=== PATIENT | male | born 1985 | race Caucasian/White ===

== ENCOUNTER 2016-10-22 15:19 | Emergency (ER) | payer OTHER ==
[2016-10-22 15:32] VITALS: BP 137/88
--- NOTE | 2016-10-22 16:01 | RAD ---
INDICATION: Right thumb injury COMPARISON: None TECHNIQUE: AP, lateral, and oblique views were obtained. FINDINGS: The bony structures, joint spaces, and soft tissues are normal for age. IMPRESSION: NEGATIVE EXAMINATION.
[2016-10-22] MEDS ORDERED: cefTRIAXone VIAL(*) 1,000 MG VIAL IM ONE (16:09)
[2016-10-22] MEDS ORDERED: Lidocaine 1% MPF* 2 ML VIAL ONE (16:13)
--- NOTE | 2016-10-22 16:20 | UC ---
Hand/Wrist HPI - HPI Summary HPI Summary: right thumb pain and swelling worsening over the past 2 days--no fevers, no known injury - History Of Current Complaint Chief Complaint: UCUpperExtremity Stated Complaint: THUMB COMPLAINT Time Seen by Provider: 10/22/16 15:45 Hx Obtained From: Patient ?: No Mechanism Of Injury: n/a Onset/Duration: Sudden Onset, Lasting Days - 2, Still Present, Worse Since - today Severity Initially: Mild Severity Currently: Moderate Character Of Pain: Aching, Throbbing Aggravating Factor(s): Movement Alleviating: Rest Associated Signs And Symptoms: Positive: Swelling, Redness - with lymph streking to wrist from erythemic area at distal joint Related History: Dominant Hand Right - Allergies/Home Medications Allergies/Adverse Reactions: Allergies Allergy/AdvReac Type Severity Reaction Status Date / Time No Known Allergies Allergy Verified 10/22/16 15:25 Home Medications: Home Medications Aspirin EC Low Dose* [Ecotrin EC Low Dose*] 1 tab DAILY 10/22/16 [History Confirmed 10/22/16] buPROPion TAB* [Wellbutrin TAB*] 1 tab DAILY 10/22/16 [History Confirmed ] PMH/Surg Hx/FS Hx/Imm Hx Previously Healthy: No Endocrine History Of: Denies: Diabetes, Thyroid Disease Cardiovascular History Of: Denies: Cardiac Disorders, Hypertension, Congestive Heart Failure Respiratory History Of: Denies: COPD, Asthma GI/ History Of: Denies: Ulcer Neurological History Of: Reports: TIA, CVA - TIA - Surgical History Surgical History: None - Family History Known Family History: Positive: Blood Disorder - Coagulation disorder, Other - HYPERCOAG - Social History 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 Lives: With Family Alcohol Use: Rare Substance Use Type: Marijuana Substance Use Comment - Amount & Last Used: DAILY Smoking Status (MU): Heavy Every Day Tobacco Smoker Type: Cigarettes Amount Used/How Often: 1PPD every other day Length of Time of Smoking/Using Tobacco: 12 years Have You Smoked in the Last Year: Yes Household Exposure Type: Cigarettes Cessation Counseling: Patient Advised to Stop - Immunization History Most Recent Influenza Vaccination: does not get Most Recent Tetanus Shot: utd Review of Systems Constitutional: Negative Skin: Other - area of erythema with streaking to wrist from mid right thumb Eyes: Negative ENT: Negative Respiratory: Negative Cardiovascular: Negative Gastrointestinal: Negative Genitourinary: Negative Motor: Decreased ROM - distal right thumb Neurovascular: Negative Musculoskeletal: Arthralgia - distal right thumb joint Neurological: Negative Psychological: Negative All Other Systems Reviewed And Are Negative: Yes Physical Exam Triage Information Reviewed: Yes Appearance: Well-Appearing, No Pain Distress, Well-Nourished Vital Signs: Initial Vital Signs Temp 98.7 F 10/22/16 15:27 Pulse 63 10/22/16 15:27 Resp 18 10/22/16 15:27 BP 137/88 10/22/16 15:27 Pulse Ox 100 10/22/16 15:27 Eye Exam: Normal Eyes: Positive: Conjunctiva Clear ENT Exam: Normal ENT: Positive: Normal ENT inspection, Hearing grossly normal. Negative: Nasal congestion, Nasal drainage, Trismus, Muffled/hoarse voice Neck exam: Normal Neck: Positive: Supple, Nontender, No Lymphadenopathy Respiratory Exam: Normal Respiratory: Positive: Chest non-tender, Lungs clear, Normal breath sounds, No respiratory distress, No accessory muscle use Cardiovascular Exam: Normal Cardiovascular: Positive: RRR, No Murmur, Pulses Normal, Brisk Capillary Refill Musculoskeletal: Positive: Strength Limited @ - right thumb, ROM Limited @ - rith thumb distal joint, Edema @ - right thumb Neurological Exam: Normal Neurological: Positive: Alert, Muscle Tone Normal Psychological Exam: Normal Skin Exam: Normal Diagnostics - Radiology No standard instances Xray Interpretation: No Acute Changes Radiology Interpretation Completed By: ED Physician, Radiologist Hand/Wrist Course/Dx - Course Course Of Treatment: infection with lymph streaking rith thumb to wrist - Differential Dx/Diagnosis Differential Diagnosis/HQI/PQRI: Cellulitis, Foreign Body, Fracture, Sprain, Strain, Tendonitis, Tenosynovitis Provider Diagnoses: infection right thumb with lymph streaking Discharge - Discharge Plan Condition: Stable Disposition: HOME Prescriptions: Sulfamethox/Trimethoprim DS* [Bactrim DS 800/160 TAB*] 1 tab PO BID #20 tab Patient Education Materials: Wound Infection (ED), Lymphangitis (ED), Heat Pack Application (ED) Forms: *Work Release Referrals: Francisco Coffey MD [Primary Care Provider] - 2 Days Angela Javier MD [Medical Doctor] - 2 Days
== END 2016-10-22 16:30 | disposition home or self-care (01) ==
LOC: UCEAST 15:19
DX: L08.9 Local infection of the skin and subcutaneous tissue, unspecified (principal); F17.210 Nicotine dependence, cigarettes, uncomplicated
CPT/HCPCS: 96372; 99213; G0463; J0696

== ENCOUNTER 2016-10-24 10:33 | Emergency (ER) | payer OTHER ==
[2016-10-24 11:21] VITALS: BP 132/90
--- NOTE | 2016-10-24 12:19 | UC ---
Hand/Wrist HPI - HPI Summary HPI Summary: continued right thumb pain , erythema and swelling - History Of Current Complaint Chief Complaint: UCUpperExtremity Stated Complaint: RT THUMB PAIN Time Seen by Provider: 10/24/16 11:37 Hx Obtained From: Patient ?: No Mechanism Of Injury: no known injury Onset/Duration: Gradual Onset, Lasting Days - 6, Still Present Severity Initially: Mild Severity Currently: Moderate Pain Intensity: 5 Pain Scale Used: 0-10 Numeric Character Of Pain: Aching Aggravating Factor(s): Movement, Lifting Alleviating: Nothing Associated Signs And Symptoms: Positive: Swelling, Redness Related History: Dominant Hand Right - Allergies/Home Medications Allergies/Adverse Reactions: Allergies Allergy/AdvReac Type Severity Reaction Status Date / Time No Known Allergies Allergy Verified 10/24/16 11:21 PMH/Surg Hx/FS Hx/Imm Hx Previously Healthy: No Endocrine History Of: Denies: Diabetes, Thyroid Disease Cardiovascular History Of: Denies: Cardiac Disorders, Hypertension, Congestive Heart Failure Respiratory History Of: Denies: COPD, Asthma GI/ History Of: Denies: Ulcer Neurological History Of: Reports: TIA, CVA - TIA - Surgical History Surgical History: None - Family History Known Family History: Positive: Blood Disorder - Coagulation disorder, Other - HYPERCOAG - Social History Occupation: Employed Full-time Lives: With Family Alcohol Use: Rare Substance Use Type: Marijuana Substance Use Comment - Amount & Last Used: DAILY Smoking Status (MU): Heavy Every Day Tobacco Smoker Type: Cigarettes Amount Used/How Often: 1PPD every other day Length of Time of Smoking/Using Tobacco: 12 years Have You Smoked in the Last Year: Yes Household Exposure Type: Cigarettes Cessation Counseling: Patient Advised to Stop - Immunization History Most Recent Influenza Vaccination: does not get Most Recent Tetanus Shot: utd Review of Systems Constitutional: Negative Skin: Negative Eyes: Negative ENT: Negative Respiratory: Negative Cardiovascular: Negative Gastrointestinal: Negative Genitourinary: Negative Motor: Decreased ROM - rith thumb Neurovascular: Negative Musculoskeletal: Arthralgia - right thumb Neurological: Negative Psychological: Negative All Other Systems Reviewed And Are Negative: Yes Physical Exam Triage Information Reviewed: Yes Appearance: Well-Appearing, No Pain Distress, Well-Nourished Vital Signs: Initial Vital Signs Temp 99.1 F 10/24/16 11:18 Pulse 63 10/24/16 11:18 Resp 16 10/24/16 11:18 BP 132/90 10/24/16 11:18 Pulse Ox 99 10/24/16 11:18 Vital Signs Reviewed: Yes Eye Exam: Normal Eyes: Positive: Conjunctiva Clear ENT Exam: Normal ENT: Positive: Normal ENT inspection, Hearing grossly normal, Pharynx normal, TMs normal. Negative: Nasal congestion, Nasal drainage, Tonsillar swelling, Tonsillar exudate, Trismus, Muffled/hoarse voice Neck exam: Normal Neck: Positive: Supple, Nontender Respiratory Exam: Normal Respiratory: Positive: Chest non-tender, Lungs clear, Normal breath sounds, No respiratory distress, No accessory muscle use Cardiovascular Exam: Normal Cardiovascular: Positive: RRR, No Murmur, Pulses Normal, Brisk Capillary Refill Musculoskeletal Exam: Other Musculoskeletal: Positive: No Edema, Strength Limited @ - right thumb, ROM Limited @ - right thumb Neurological Exam: Normal Neurological: Positive: Alert, Muscle Tone Normal Psychological Exam: Normal Psychological: Positive: Normal Response To Family Skin Exam: Normal Hand/Wrist Course/Dx - Course Course Of Treatment: add Keflex, labs, warm soaks follow with pcp - Differential Dx/Diagnosis Differential Diagnosis/HQI/PQRI: Bursitis, Cellulitis, Gout, Sprain, Strain Provider Diagnoses: right thumb gout - Physician Notifications Discussed Patient Care With: Dr. Cote Time Discussed With Above Provider: 12:00 Discharge - Discharge Plan Condition: Stable Disposition: HOME Prescriptions: Cephalexin CAP* [Keflex CAP*] 500 mg PO QID #28 cap Indomethacin CAP* [Indocin CAP*] 25 mg PO TID PRN #30 cap PRN Reason: pain Patient Education Materials: Wound Infection (ED), Low Purine Diet (ED), Gout ( ED), Heat Pack Application (ED) Referrals: Francisco Coffey MD [Primary Care Provider] - 3 Days
[2016-10-24 16:51] LABS: Hematocrit 49 % (42-52); Hemoglobin 16.5 g/dl (14.0-18.0); Mean Corpuscular HGB Conc 33 g/dl (31-36); Mean Corpuscular Hemoglobin 31 pg (27-31); Mean Corpuscular Volume 93 fL (80-94); Mean Platelet Volume 8 um3 (7.4-10.4); Red Blood Count 5.34 10^6/ul (4.0-5.4); Red Cell Distribution Width 14 % (10.5-15); White Blood Count 12.1 10^3/ul (3.5-10.8)
[2016-10-24 16:54] LABS: C Reactive Protein < 1.00 mg/L (< 5.00); Uric Acid 5.1 mg/dL (4.4-7.6)
[2016-10-24 17:45] LABS: Erythrocyte Sed Rate 3 mm/Hr (0-14)
== END 2016-10-24 12:42 | disposition home or self-care (01) ==
LOC: UCEAST 10:33
DX: M10.9 Gout, unspecified (principal); F17.210 Nicotine dependence, cigarettes, uncomplicated; Z86.73 Personal history of transient ischemic attack (TIA), and cerebral infarction without residual deficits
CPT/HCPCS: 36415; 84550; 85025; 85652; 86140; 99212; G0463

== ENCOUNTER 2016-10-27 14:10 | Emergency (ER) | payer OTHER ==
[2016-10-27 15:38] VITALS: BP 128/89
--- NOTE | 2016-10-27 16:45 | UC ---
General HPI - HPI Summary HPI Summary: SEEN TWICE FOR EVALUATION OF RIGHT THUMB CELLULITIS. SINCE SECOND COURSE OF ANTIBIOTICS SYMPTOMS HAVE RESOLVED. WOULD LIKE WORK NOTE TO RETURN - History of Current Complaint Chief Complaint: Adrianne Stated Complaint: WOUND RECHECK Time Seen by Provider: 10/27/16 16:08 Hx Obtained From: Patient Onset/Duration: Gradual Onset, Lasting Weeks, Resolved Onset Severity: Moderate Current Severity: None Pain Intensity: 0 - Allergy/Home Medications Allergies/Adverse Reactions: Allergies Allergy/AdvReac Type Severity Reaction Status Date / Time No Known Allergies Allergy Verified 10/27/16 15:36 PMH/Surg Hx/FS Hx/Imm Hx Previously Healthy: Yes Endocrine History Of: Denies: Diabetes, Thyroid Disease Cardiovascular History Of: Denies: Cardiac Disorders, Hypertension, Congestive Heart Failure Respiratory History Of: Denies: COPD, Asthma GI/ History Of: Denies: Ulcer Neurological History Of: Reports: TIA, CVA - TIA - Surgical History Surgical History: None - Family History Known Family History: Positive: Blood Disorder - Coagulation disorder, Other - HYPERCOAG - Social History Occupation: Employed Full-time Lives: With Family Alcohol Use: Rare Substance Use Type: Marijuana Substance Use Comment - Amount & Last Used: DAILY Smoking Status (MU): Former Smoker Type: Cigarettes Amount Used/How Often: 1PPD every other day Length of Time of Smoking/Using Tobacco: 12 years Have You Smoked in the Last Year: Yes Household Exposure Type: Cigarettes - Immunization History Most Recent Influenza Vaccination: does not get Most Recent Tetanus Shot: UTD Review of Systems Constitutional: Negative Skin: Negative Eyes: Negative ENT: Negative Respiratory: Negative Cardiovascular: Negative Gastrointestinal: Negative Genitourinary: Negative Motor: Negative Neurovascular: Negative Musculoskeletal: Negative Neurological: Negative Psychological: Negative All Other Systems Reviewed And Are Negative: Yes Physical Exam Triage Information Reviewed: Yes Appearance: Well-Appearing, No Pain Distress, Well-Nourished Vital Signs: Initial Vital Signs Temp 98.7 F 10/27/16 15:33 Pulse 78 10/27/16 15:33 Resp 12 10/27/16 15:33 BP 128/89 10/27/16 15:33 Pulse Ox 99 10/27/16 15:33 Vital Signs Reviewed: Yes Eye Exam: Normal Eyes: Positive: Conjunctiva Clear ENT Exam: Normal ENT: Positive: Normal ENT inspection, Hearing grossly normal, Pharynx normal, TMs normal Dental Exam: Normal Neck exam: Normal Neck: Positive: Supple, Nontender, No Lymphadenopathy Respiratory Exam: Normal Respiratory: Positive: Chest non-tender, Lungs clear, Normal breath sounds, No respiratory distress, No accessory muscle use Cardiovascular Exam: Normal Cardiovascular: Positive: RRR, No Murmur, Pulses Normal Abdominal Exam: Normal Abdomen Description: Positive: Nontender, No Organomegaly Musculoskeletal Exam: Normal Musculoskeletal: Positive: Strength Intact, ROM Intact, No Edema Neurological Exam: Normal Psychological Exam: Normal Psychological: Positive: Normal Response To Family Skin Exam: Normal Course/Dx - Course Course Of Treatment: RETURN TO WORK NOTE WRITTEN - Differential Dx - Multi-Symptom Provider Diagnoses: NORMAL EXAM; MAY RETURN TO WORK Discharge - Discharge Plan Condition: Stable Disposition: HOME Forms: *Gen. Provider Communication Referrals: Francisco Coffey MD [Primary Care Provider] -
== END 2016-10-27 16:32 | disposition home or self-care (01) ==
LOC: UCEAST 14:10
DX: Z09 Encounter for follow-up examination after completed treatment for conditions other than malignant neoplasm (principal); F12.90 Cannabis use, unspecified, uncomplicated; F17.210 Nicotine dependence, cigarettes, uncomplicated
CPT/HCPCS: 99211; G0463

== ENCOUNTER 2017-02-01 10:22 | Emergency (ER) | payer OTHER ==
--- NOTE | 2017-02-01 12:08 | UC ---
Back Pain HPI - HPI Summary HPI Summary: Return of chronic low back pain seem to be on the right side of his lumbar spine more than the left--has not had an opportunity to follow with with pcp - History of Current Complaint Chief Complaint: UCBackPain Stated Complaint: BACK INJURY Time Seen by Provider: 02/01/17 12:05 Hx Obtained From: Patient Onset/Duration: Gradual Onset, Lasting Weeks, Worse Since - past 2 days Timing: Constant Pain Intensity: 6 Pain Scale Used: 0-10 Numeric Back Pain: Is Discrete @ - right side low back Character: Aching, Spasmodic, Stiffness Aggravating: Movement, Lifting, Bending Alleviating: Rest Associated Signs And Symptoms: Positive: Negative Related History: Previous Back Injury - Allergies/Home Medications Allergies/Adverse Reactions: Allergies Allergy/AdvReac Type Severity Reaction Status Date / Time No Known Allergies Allergy Verified 10/27/16 15:36 PMH/Surg Hx/FS Hx/Imm Hx Previously Healthy: No Endocrine History Of: Denies: Diabetes, Thyroid Disease Cardiovascular History Of: Denies: Cardiac Disorders, Hypertension, Congestive Heart Failure Respiratory History Of: Denies: COPD, Asthma GI/ History Of: Denies: Ulcer Neurological History Of: Reports: TIA, CVA - TIA - Surgical History Surgical History: None - Family History Known Family History: Positive: Blood Disorder - Coagulation disorder, Other - HYPERCOAG - Social History Occupation: Employed Full-time Lives: With Family Alcohol Use: Rare Substance Use Type: Marijuana Substance Use Comment - Amount & Last Used: DAILY Smoking Status (MU): Former Smoker Type: Cigarettes Amount Used/How Often: 1PPD every other day Length of Time of Smoking/Using Tobacco: 12 years Have You Smoked in the Last Year: Yes Household Exposure Type: Cigarettes Cessation Counseling: Counseled 3+Min - 10 Min - Immunization History Most Recent Influenza Vaccination: does not get Most Recent Tetanus Shot: UTD Review of Systems Constitutional: Negative Skin: Negative Eyes: Negative ENT: Negative Respiratory: Negative Cardiovascular: Negative Gastrointestinal: Negative Genitourinary: Negative Motor: Negative Neurovascular: Negative Musculoskeletal: Myalgia - right side of low back Neurological: Negative Psychological: Negative All Other Systems Reviewed And Are Negative: Yes Physical Exam Triage Information Reviewed: Yes Appearance: Well-Appearing, No Pain Distress, Well-Nourished Vital Signs Reviewed: Yes Eye Exam: Normal Eyes: Positive: Conjunctiva Clear ENT Exam: Normal ENT: Positive: Normal ENT inspection, Hearing grossly normal, Pharynx normal. Negative: Nasal congestion, Nasal drainage, Tonsillar swelling, Tonsillar exudate, Trismus, Muffled/hoarse voice Dental Exam: Normal Neck exam: Normal Neck: Positive: Supple, Nontender, No Lymphadenopathy Respiratory Exam: Normal Respiratory: Positive: Chest non-tender, Lungs clear, Normal breath sounds, No respiratory distress, No accessory muscle use Cardiovascular Exam: Normal Cardiovascular: Positive: RRR, No Murmur, Pulses Normal, Brisk Capillary Refill Abdominal Exam: Normal Abdomen Description: Positive: Nontender, No Organomegaly, Soft Musculoskeletal Exam: Normal Musculoskeletal: Positive: Strength Intact, ROM Intact, No Edema, Other: - right lower back muscles tender Neurological Exam: Normal Neurological: Positive: Alert Psychological Exam: Normal Skin Exam: Normal Back Pain Course/Dx - Course Course Of Treatment: low back exercise, core strengthening exercixe, nictonine cesation information, nsaid, muscle relaxor follow with pcp - Differential Dx/Diagnosis Differential Diagnosis/HQI/PQRI: Arthritis, Strain, Sprain Provider Diagnoses: Acute on chronic low back pain, nicotine dependant Discharge - Discharge Plan Condition: Stable Disposition: HOME Prescriptions: Ibuprofen TAB* [Motrin TAB* 600 MG] 600 mg PO Q6H PRN #40 tab PRN Reason: back pain, muscle pain Tizanidine HCl (Bulk) [Tizanidine HCl] 2 mg PO TID #40 tab Patient Education Materials: Nicotine (By breathing), How to Stop Smoking (ED) , Sciatica (ED), Lower Back Exercises (ED), Core Strengthening Exercises (ED) Forms: *Work Release Referrals: [facility] [[facility]] - 1 Week Francisco Coffey MD [Primary Care Provider] -
[2017-02-01 12:15] VITALS: BP 118/80
== END 2017-02-01 12:20 | disposition home or self-care (01) ==
LOC: UCEAST 10:22
DX: M54.5 Low back pain (principal); G89.21 Chronic pain due to trauma; F12.90 Cannabis use, unspecified, uncomplicated; F17.210 Nicotine dependence, cigarettes, uncomplicated; Z71.6 Tobacco abuse counseling
CPT/HCPCS: 99212; G0463

== ENCOUNTER 2017-07-17 06:26 | Emergency (ER) | payer OTHER ==
[2017-07-17] MEDS ORDERED: NS 0.9% 1000 ML* 1,000 ML IV ONE (07:44)
[2017-07-17] MEDS ORDERED: Ondansetron INJ* 2 MG/ML VIAL IV ONE ×2 (07:44→09:03)
--- NOTE | 2017-07-17 08:25 | RAD ---
CLINICAL HISTORY: Nausea vomiting, flank pain, COMPARISON: October 28, 2014 TECHNIQUE: Multiple contiguous axial CT scans were obtained of the abdomen and pelvis, without intravenous contrast enhancement. Coronal and sagittal multiplanar reformations are submitted for review. Oral contrast was not administered. FINDINGS: The study is limited by the lack of intravenous contrast. This limits evaluation of the solid organs and vasculature. LUNG BASES: The lung bases are clear. LIVER: The liver is normal in shape, size, contour, and attenuation. BILE DUCTS: There is no intrahepatic or extrahepatic biliary dilatation. GALLBLADDER: The gallbladder is normal, without pericholecystic inflammatory change. PANCREAS: The pancreas is normal, without mass or ductal dilatation. SPLEEN: Normal in size and appearance. UPPER GI TRACT: Evaluation of the gastrointestinal tract is limited by incomplete gastric distention. The upper GI tract is unremarkable. SMALL BOWEL AND MESENTERY: The small bowel is normal in contour, course, and caliber. There is no obstruction or dilatation. COLON: The colon is normal in contour, course, caliber. There is no pericolonic inflammatory change. There is a tubular, vermiform, hollow viscus that is blind ending, and originates from the cecum, consistent with a normal appendix. There is no periappendiceal inflammatory change. This is best seen on axial images 107 through 117 ADRENALS: Normal bilaterally. KIDNEYS: The kidneys are normal in shape, size, contour, and axis. There is no hydronephrosis or nephrolithiasis. BLADDER: The bladder is smooth in contour. PELVIC ORGANS: The prostate gland is normal. The seminal vesicles are symmetric. AORTA: The aorta is normal. IVC: Unremarkable LYMPH NODES: There is no lymphadenopathy by size criteria. ABDOMINAL WALL: There is no evidence for abdominal wall hernia. BONES AND SOFT TISSUES: Unremarkable OTHER: None IMPRESSION: NO HYDRONEPHROSIS OR NEPHROLITHIASIS. NO ACUTE CT PATHOLOGY OF THE VISUALIZED ABDOMEN OR PELVIS
[2017-07-17 08:26] LABS: Hematocrit 46 % (42-52); Hemoglobin 16.7 g/dl (14.0-18.0); Mean Corpuscular HGB Conc 36 g/dl (31-36); Mean Corpuscular Hemoglobin 32 pg (27-31); Mean Corpuscular Volume 88 fL (80-94); Mean Platelet Volume 8 um3 (7.4-10.4); Red Blood Count 5.27 10^6/ul (4.0-5.4); Red Cell Distribution Width 13 % (10.5-15); White Blood Count 10.2 10^3/ul (3.5-10.8)
[2017-07-17 08:27] LABS: Comments Flag Yes
[2017-07-17 08:41] LABS: Albumin 4.5 g/dL (3.2-5.2); BUN/Creatinine Ratio 6.9 (8-20); C Reactive Protein 1.82 mg/L (< 5.00); Calcium 9.8 mg/dL (8.6-10.3); EGFR African American 132.5 (>60); Globulin 2.1 g/dL (2-4); Potassium 3.7 mmol/L (3.5-5.0); Total Bilirubin 0.7 mg/dL (0.2-1.0); Total Protein 6.6 g/dL (6.4-8.9)
[2017-07-17 10:08] LABS: Urine Bacteria Absent (Absent); Urine Bilirubin Negative (Negative); Urine Glucose Negative (Negative); Urine Nitrite Negative (Negative)
[2017-07-17 11:13] VITALS: BP 129/84
--- NOTE | 2017-07-17 12:25 | ED ---
John Chen Nilda, scribed for Adam Salamanca MD on 07/17/17 at 0723 . Abdominal Pain/Male - HPI Summary HPI Summary: This patient is a 31 year old M BIBA to [facility] with a chief complaint of intermittent vomiting since 0200 yesterday morning. The patient rates the pain 8 /10 in severity. Symptoms aggravated and alleviated by nothing. Patient reports abdominal pain (diffuse, aggravated by movement), R-flank pain, and nausea. He denies dysuria and hematuria. Patient denies Hx of Renal Calculi. - History of Current Complaint Chief Complaint: EDGeneral Stated Complaint: VOMITING Time Seen by Provider: 07/17/17 07:17 Hx Obtained From: Patient Onset/Duration: Sudden Onset Timing: Intermittent Severity Currently: Severe Pain Intensity: 8 Pain Scale Used: 0-10 Numeric Location: Diffuse, Flank - R-sided Aggravating Factor(s): Nothing Alleviating Factor(s): Nothing Associated Signs And Symptoms: Positive: Other - abdominal pain (aggravated by movement), R-flank pain, and nausea. He denies abnormal urinary symptoms ( dysuria and hematuria). - Allergies/Home Medications Allergies/Adverse Reactions: Allergies Allergy/AdvReac Type Severity Reaction Status Date / Time No Known Allergies Allergy Verified 07/17/17 06:44 PMH/Surg Hx/FS Hx/Imm Hx Endocrine/Hematology History: Denies: Hx Diabetes, Hx Thyroid Disease Cardiovascular History: Denies: Hx Congestive Heart Failure, Hx Hypertension Respiratory History: Denies: Hx Asthma, Hx Chronic Obstructive Pulmonary Disease (COPD) GI History: Denies: Hx Ulcer History: Denies: Hx Kidney Stones Neurological History: Reports: Hx Transient Ischemic Attacks (TIA) Psychiatric History: Denies: Hx of Violent Episodes Against Others Infectious Disease History: No Infectious Disease History: Denies: Hx Hepatitis, Hx Human Immunodeficiency Virus (HIV), History Other Infectious Disease, Traveled Outside the [place] in Last 30 Days - Family History Known Family History: Positive: Blood Disorder - Coagulation disorder, Other - HYPERCOAG - Social History Alcohol Use: Rare Substance Use Type: Reports: Marijuana Substance Use Comment - Amount & Last Used: DAILY Smoking Status (MU): Former Smoker Type: Cigarettes Amount Used/How Often: 1PPD every other day Length of Time of Smoking/Using Tobacco: 12 years Have You Smoked in the Last Year: Yes Review of Systems Positive: Abdominal Pain, Vomiting, Nausea Positive: flank pain - Right flank pain. Negative: dysuria, hematuria All Other Systems Reviewed And Are Negative: Yes Physical Exam Triage Information Reviewed: Yes Vital Signs On Initial Exam: Initial Vitals Temp Pulse Resp BP Pulse Ox 98.5 F 64 20 136/91 100 07/17/17 06:30 07/17/17 06:30 07/17/17 06:30 07/17/17 06:30 07/17/17 06:30 Vital Signs Reviewed: Yes Appearance: Positive: Well-Appearing, No Pain Distress Skin: Positive: Warm, Skin Color Reflects Adequate Perfusion, Dry Head/Face: Positive: Normal Head/Face Inspection Eyes: Positive: Normal ENT: Positive: Normal ENT inspection Neck: Positive: Supple, Nontender Respiratory/Lung Sounds: Positive: Clear to Auscultation, Breath Sounds Present Cardiovascular: Positive: RRR Abdomen Description: Positive: Nontender, Soft Bowel Sounds: Positive: Present Neurological: Positive: Normal Psychiatric: Positive: Normal, Affect/Mood Appropriate Diagnostics - Vital Signs Vital Signs Temp Pulse Resp BP Pulse Ox 07/17/17 07:01 75 98 07/17/17 06:48 112/72 07/17/17 06:47 58 100 07/17/17 06:30 98.5 F 64 20 136/91 100 - Laboratory Lab Results: Lab Results 07/17/17 07/17/17 07/17/17 Range/Units 08:10 08:10 08:10 WBC 10.2 (3.5-10.8) 10^3/ul RBC 5.27 (4.0-5.4) 10^6/ul Hgb 16.7 (14.0-18.0) g/dl Hct 46 (42-52) % MCV 88 (80-94) fL MCH 32 H (27-31) pg MCHC 36 (31-36) g/dl RDW 13 (10.5-15) % Plt Count 251 (150-450) 10^3/ul MPV 8 (7.4-10.4) um3 Neut % (Auto) 80.2 (38-83) % Lymph % (Auto) 15.0 L (25-47) % [place] % (Auto) 4.2 (1-9) % Eos % (Auto) 0.1 (0-6) % Baso % (Auto) 0.5 (0-2) % Absolute Neuts (auto) 8.2 H (1.5-7.7) 10^3/ul Absolute Lymphs (auto) 1.5 (1.0-4.8) 10^3/ul Absolute Monos (auto) 0.4 (0-0.8) 10^3/ul Absolute Eos (auto) 0 (0-0.6) 10^3/ul Absolute Basos (auto) 0 (0-0.2) 10^3/ul Absolute Nucleated RBC 0.01 10^3/ul Nucleated RBC % 0.1 Sodium 135 (133-145) mmol/L Potassium 3.7 (3.5-5.0) mmol/L Chloride 103 (101-111) mmol/L Carbon Dioxide 25 (22-32) mmol/L Anion Gap 7 (2-11) mmol/L BUN 6 (6-24) mg/dL Creatinine 0.87 (0.67-1.17) mg/dL Est GFR ( Amer) 132.5 (>60) Est GFR (Non-Af Amer) 103.0 (>60) BUN/Creatinine Ratio 6.9 L (8-20) Glucose 115 H (70-100) mg/dL Lactic Acid 1.4 (0.5-2.0) mmol/L Calcium 9.8 (8.6-10.3) mg/dL Total Bilirubin 0.70 (0.2-1.0) mg/dL AST 18 (13-39) U/L ALT 28 (7-52) U/L Alkaline Phosphatase 69 (34-104) U/L C-Reactive Protein 1.82 (< 5.00) mg/L Total Protein 6.6 (6.4-8.9) g/dL Albumin 4.5 (3.2-5.2) g/dL Globulin 2.1 (2-4) g/dL Albumin/Globulin Ratio 2.1 (1-3) Lipase 65 (11.0-82.0) U/L Urine Color Urine Appearance Urine pH (5-9) Ur Specific [place] (1.010-1.030) Urine Protein (Negative) Urine Ketones (Negative) Urine Blood (Negative) Urine Nitrate (Negative) Urine Bilirubin (Negative) Urine Urobilinogen (Negative) Ur Leukocyte Esterase (Negative) Urine WBC (Auto) (Absent) Urine RBC (Auto) (Absent) Urine Bacteria (Absent) Urine Glucose (Negative) 07/17/17 Range/Units 09:53 WBC (3.5-10.8) 10^3/ul RBC (4.0-5.4) 10^6/ul Hgb (14.0-18.0) g/dl Hct (42-52) % MCV (80-94) fL MCH (27-31) pg MCHC (31-36) g/dl RDW (10.5-15) % Plt Count (150-450) 10^3/ul MPV (7.4-10.4) um3 Neut % (Auto) (38-83) % Lymph % (Auto) (25-47) % [place] % (Auto) (1-9) % Eos % (Auto) (0-6) % Baso % (Auto) (0-2) % Absolute Neuts (auto) (1.5-7.7) 10^3/ul Absolute Lymphs (auto) (1.0-4.8) 10^3/ul Absolute Monos (auto) (0-0.8) 10^3/ul Absolute Eos (auto) (0-0.6) 10^3/ul Absolute Basos (auto) (0-0.2) 10^3/ul Absolute Nucleated RBC 10^3/ul Nucleated RBC % Sodium (133-145) mmol/L Potassium (3.5-5.0) mmol/L Chloride (101-111) mmol/L Carbon Dioxide (22-32) mmol/L Anion Gap (2-11) mmol/L BUN (6-24) mg/dL Creatinine (0.67-1.17) mg/dL Est GFR ( Amer) (>60) Est GFR (Non-Af Amer) (>60) BUN/Creatinine Ratio (8-20) Glucose (70-100) mg/dL Lactic Acid (0.5-2.0) mmol/L Calcium (8.6-10.3) mg/dL Total Bilirubin (0.2-1.0) mg/dL AST (13-39) U/L ALT (7-52) U/L Alkaline Phosphatase (34-104) U/L C-Reactive Protein (< 5.00) mg/L Total Protein (6.4-8.9) g/dL Albumin (3.2-5.2) g/dL Globulin (2-4) g/dL Albumin/Globulin Ratio (1-3) Lipase (11.0-82.0) U/L Urine Color [place] Urine Appearance Clear Urine pH 7.0 (5-9) Ur Specific [place] 1.027 (1.010-1.030) Urine Protein 1+(30 mg/dl) H (Negative) Urine Ketones 1+ H (Negative) Urine Blood Negative (Negative) Urine Nitrate Negative (Negative) Urine Bilirubin Negative (Negative) Urine Urobilinogen Negative (Negative) Ur Leukocyte Esterase Trace H (Negative) Urine WBC (Auto) Trace(0-5/hpf) (Absent) Urine RBC (Auto) Trace(0-2/hpf) (Absent) Urine Bacteria Absent (Absent) Urine Glucose Negative (Negative) Result Diagrams: 07/17/17 08:10 07/17/17 08:10 Lab Statement: Any lab studies that have been ordered have been reviewed, and results considered in the medical decision making process. - CT Abd/Pel CT Interpretation Completed By: Radiologist - NO HYDRONEPHROSIS OR NEPHROLITHIASIS. NO ACUTE CT PATHOLOGY OF THE VISUALIZED ABDOMEN OR PELVIS. ED physician has reviewed this radiology report and agrees. - EKG 0656 Cardiac Rate: Bradycardia - 60 bpm EKG Rhythm: Sinus Bradycardia EKG Interpretation: Early repolarization Re-Evaluation - Re-Evaluation First Eval Re-Evaluation Time: 10:55 Comment: Patient feels better. Abdominal Pain Fem Course/Dx - Course Course Of Treatment: Mr. Oconnor presented with intermittent right flank pain that was into the front yesterday but not today. He had a lot of nausea and vomiting. He was treated symptomatically here and improved slowly. His W/U was unrevealing. - Diagnoses Provider Diagnoses: Vomiting Discharge - Discharge Plan Condition: Stable Disposition: HOME Prescriptions: Ondansetron ODT TAB* [Zofran Odt TAB*] 4 mg PO Q6H PRN #20 tab.odt PRN Reason: Nausea/Vomiting Patient Education Materials: Acute Nausea and Vomiting (ED) Referrals: Francisco Coffey MD [Primary Care Provider] - Additional Instructions: RETURN TO THE EMERGENCY DEPARTMENT FOR CHANGING OR WORSENING SYMPTOMS. The documentation as recorded by the John cervantes Nilda accurately reflects the service I personally performed and the decisions made by me, Adam Salamanca MD.
== END 2017-07-17 11:15 | disposition home or self-care (01) ==
LOC: ED 06:26
DX: R11.10 Vomiting, unspecified (principal); R10.9 Unspecified abdominal pain
CPT/HCPCS: 36415; 74176; 80053; 81003; 81015; 83605; 83690; 85025; 86140; 87086; 93005; 96374; 96375; 99283; J2405

== ENCOUNTER 2017-07-21 10:07 | Emergency (ER) | payer OTHER ==
[2017-07-21 10:21] VITALS: BP 132/98
--- NOTE | 2017-07-21 10:45 | UC ---
Abdominal Pain Male HPI - HPI Summary HPI Summary: PT HERE C/O 1 WEEK OF PERSISTENT CONTINUOUS NAUSEA AND VOMITING. WENT TO [facility] 5 DAYS AGO AND HAD UNREMARKABLE W/U INCLUDING BLOOD WORK, URINE AND CT SCAN. WAS D/C'D WITH ZOFRAN BUT SX NOT IMPROVING AT ALL. PT DENIES FEVER, ABDOMINAL PAIN, DIARRHEA. HAS NOT EATEN MUCH OVER THE PAST WEEK AND HAS ONLY HAD 1 SMALL BM. ALSO C/O RIGHT FLANK PAIN. OF NOTE PT IS A CHRONIC DAILY CANNABIS SMOKER. - History of Current Complaint Chief Complaint: UCGeneralIllness Stated Complaint: BACK PAIN VOMITING Time Seen by Provider: 07/21/17 10:28 Hx Obtained From: Patient, Family/Promotions Executive - GIRLFRIEND Onset/Duration: Gradual Onset, Lasting Days, Still Present Timing: Constant Severity Initially: Moderate Severity Currently: Moderate Pain Intensity: 7 Pain Scale Used: 0-10 Numeric Aggravating Factor(s): Nothing Alleviating Factor(s): Nothing Associated Signs And Symptoms: Positive: Back Pain, Decreased Appetite, Nausea, Vomiting. Negative: Fever, Constipation, Blood in Stool, Urinary Symptoms, Diarrhea - Allergies/Home Medications Allergies/Adverse Reactions: Allergies Allergy/AdvReac Type Severity Reaction Status Date / Time No Known Allergies Allergy Verified 07/21/17 10:10 PMH/Surg Hx/FS Hx/Imm Hx Psychological History: Anxiety - Surgical History Surgical History: None - Family History Known Family History: Positive: Blood Disorder - Coagulation disorder, Other - HYPERCOAG - Social History Alcohol Use: Rare Substance Use Type: Marijuana Substance Use Comment - Amount & Last Used: DAILY Smoking Status (MU): Heavy Every Day Tobacco Smoker Type: Cigarettes Amount Used/How Often: 6-7 cig/day Length of Time of Smoking/Using Tobacco: 12 years Have You Smoked in the Last Year: Yes Household Exposure Type: Cigarettes - Immunization History Most Recent Influenza Vaccination: does not get Most Recent Tetanus Shot: UTD Review of Systems Constitutional: Negative ENT: Negative Respiratory: Negative Cardiovascular: Negative Gastrointestinal: Vomiting, Nausea All Other Systems Reviewed And Are Negative: Yes Physical Exam Triage Information Reviewed: Yes Appearance: No Pain Distress, Well-Nourished, Ill-Appearing - MODERATELY ILL APPEARING. ACTIVELY HEAVING REPETITIVELY WHILE IN ROOM Vital Signs: Initial Vital Signs Temp 98.7 F 07/21/17 10:14 Pulse 65 10/13/17 10:14 Resp 18 07/21/17 10:14 BP 132/98 07/21/17 10:14 Pulse Ox 100 07/21/17 10:14 Vital Signs Reviewed: Yes Eyes: Positive: Conjunctiva Clear ENT: Positive: Hearing grossly normal Neck: Positive: Supple Respiratory: Positive: No respiratory distress, No accessory muscle use Cardiovascular Exam: Normal Abdomen Description: Positive: Nontender, Soft. Negative: CVA Tenderness (R), CVA Tenderness (L), Distended, Guarding Musculoskeletal: Positive: No Edema Neurological: Positive: Alert Psychological: Positive: Age Appropriate Behavior Skin: Negative: rashes Abd Pain Male Course/Dx - Course Course Of Treatment: DISCUSSED POSSIBILITY OF HYPEREMESIS CANNABIS. ADVISED CANNABIS CESSATION. PT TO GO TO [facility] ER BY PRIVATE CAR FOR FURTHER EVALUATION GIVEN LONGSTANDING UNRELENTING SX. - Differential Dx/Clinical Impression Provider Diagnoses: ACUTE NAUSEA/VOMITING Discharge - Discharge Plan Condition: Stable Disposition: OTHER Discharge Disposition Comment: TO [facility] ER BY PRIVATE CAR Patient Education Materials: Acute Nausea and Vomiting (ED) Referrals: Francisco Coffey MD [Primary Care Provider] - If Needed Additional Instructions: YOU REQUIRE A HIGHER LEVEL OF CARE THAN WHAT WE CAN PROVIDE HERE. GO DIRECTLY TO THE [facility] ER FROM HERE FOR FURTHER EVALUATION.
== END 2017-07-21 10:55 ==
LOC: UCEAST 10:07
DX: R11.2 Nausea with vomiting, unspecified (principal); F17.210 Nicotine dependence, cigarettes, uncomplicated; F12.10 Cannabis abuse, uncomplicated
CPT/HCPCS: 99212; G0463

== ENCOUNTER 2017-07-21 11:31 | Emergency (ER) | payer OTHER ==
[2017-07-21] MEDS ORDERED: Ondansetron INJ* 2 MG/ML VIAL ONE (12:13)
[2017-07-21] MEDS ORDERED: Ketorolac INJ* 30 MG/ML 1 ML VIAL IV PUSH ONE (12:28)
[2017-07-21] MEDS ORDERED: Metoclopramide IV* 5 MG/ML 2 ML VIAL IV ONE (12:28)
[2017-07-21 12:34] LABS: Hematocrit 53 % (42-52); Mean Corpuscular HGB Conc 34 g/dl (31-36); Mean Corpuscular Hemoglobin 31 pg (27-31); Mean Corpuscular Volume 89 fL (80-94); Mean Platelet Volume 7 um3 (7.4-10.4); Red Cell Distribution Width 14 % (10.5-15); White Blood Count 11.5 10^3/ul (3.5-10.8)
[2017-07-21 12:53] LABS: Urine Bacteria Absent (Absent); Urine Bilirubin Negative (Negative); Urine Glucose Negative (Negative); Urine Nitrite Negative (Negative)
[2017-07-21 12:56] LABS: ALT 31 U/L (7-52); AST 19 U/L (13-39); Alkaline Phosphatase 68 U/L (34-104); Anion Gap 9 mmol/L (2-11); BUN/Creatinine Ratio 8.5 (8-20); Blood Urea Nitrogen 8 mg/dL (6-24); C Reactive Protein < 1.00 mg/L (< 5.00); CO2 Carbon Dioxide 28 mmol/L (22-32); Calcium 10.1 mg/dL (8.6-10.3); Chloride 97 mmol/L (101-111); Creatine Kinase 95 U/L (10-223); EGFR African American 121.2 (>60); EGFR Non-African American 94.2 (>60); Globulin 2.4 g/dL (2-4); Glucose 107 mg/dL (70-100); Lipase 73 U/L (11.0-82.0); Potassium 4.1 mmol/L (3.5-5.0); Sodium 134 mmol/L (133-145); Total Protein 7.4 g/dL (6.4-8.9)
--- NOTE | 2017-07-21 12:59 | RAD ---
INDICATION: Back pain. COMPARISON: There are no prior studies available for comparison. TECHNIQUE: 3 views of the lumbar spine were obtained including lateral, AP and a coned-down lateral view of the lumbar sacral junction. FINDINGS: There is a minimal lumbar scoliosis convex toward the right side. The vertebra are otherwise in normal alignment. No fracture is seen. Disc spaces appear maintained. IMPRESSION: NEGATIVE EXAM.
--- NOTE | 2017-07-21 13:32 | RAD ---
HISTORY: Right upper quadrant and right flank pain COMPARISONS: CT dated July 17, 2017 TECHNIQUE: Multiple transverse and longitudinal ultrasound images were obtained of the right upper quadrant of the abdomen using grayscale and color Doppler imaging. FINDINGS: The study is limited by patient bowel gas. LIVER: The liver is normal in shape, size, contour, and echogenicity. There are no focal parenchymal masses. There is normal hepatopedal flow of the portal vein on Doppler imaging. BILIARY TREE: There is no intrahepatic or extrahepatic biliary dilatation. The common duct measures 0.5 cm. GALLBLADDER: The gallbladder is well-visualized. There is no cholelithiasis, gallbladder wall thickening, pericholecystic fluid, or sonographic Beyer sign. PANCREAS: The pancreas is obscured by overlying bowel gas. RIGHT KIDNEY: The right kidney is normal in shape, size, contour, and echogenicity. There is no hydronephrosis or nephrolithiasis. The right kidney measures 9.8 x 4.8 x 5.5 cm. AORTA AND IVC: The aorta and IVC are unremarkable. FLUID: There are no pleural effusions. There is no free fluid within the hepatorenal recess. OTHER FINDINGS: None. IMPRESSION: LIMITED STUDY. NO ACUTE SONOGRAPHIC PATHOLOGY OF THE VISUALIZED PORTION OF THE ABDOMEN.
[2017-07-21 14:50] VITALS: BP 143/87
--- NOTE | 2017-07-22 18:48 | ED ---
Kate Chen Thomas, scribed for Mat Cotter MD on 07/21/17 at 1251 . Abdominal Pain/Male - HPI Summary HPI Summary: The pt is a 31 y/o M BIBA c/o R flank pain that began six days ago. The pain has worsened throughout the week. The pt rates the pain 8/10. The pain is aggravated by movement and is alleviated by nothing. The patient has treated the pain with Zofran BATTERY PLATE REMOVER. Pt additionally c/o nausea, vomiting, decreased urine output. Pt denies hematuria, dysuria, and fever. He was seen by Dr. Rupesh Salamanca at [facility] five days ago. His workup during that visit was unremarkable and he symptomatically treated before being discharged home. PMHx: chronic back pain. PSHx: none. SHx: current smoker, occasional alcohol use. FHx: he is adopted and FHx is unknown. The patient is accompanied by a female family member. - History of Current Complaint Chief Complaint: EDFlankPain Stated Complaint: FT FLANK PAIN/NAUSEA Time Seen by Provider: 07/21/17 12:14 Hx Obtained From: Patient, Family/Drywall Carrier - female is present Onset/Duration: Lasting Days - onset 6 days ago, Still Present, Worse Since - progressively worsened Timing: Constant Severity Currently: Severe Pain Intensity: 8 Pain Scale Used: 0-10 Numeric Location: Flank - R Aggravating Factor(s): Movement Alleviating Factor(s): Nothing Associated Signs And Symptoms: Positive: Nausea, Vomiting, Other - Decreased urine output. NEGATIVE: hematuria, dysuria, fever.. Negative: Fever - Allergies/Home Medications Allergies/Adverse Reactions: Allergies Allergy/AdvReac Type Severity Reaction Status Date / Time No Known Allergies Allergy Verified 07/21/17 10:10 PMH/Surg Hx/FS Hx/Imm Hx Previously Healthy: No Endocrine/Hematology History: Denies: Hx Diabetes, Hx Thyroid Disease Cardiovascular History: Denies: Hx Congestive Heart Failure, Hx Hypertension Respiratory History: Denies: Hx Asthma, Hx Chronic Obstructive Pulmonary Disease (COPD) GI History: Denies: Hx Ulcer History: Denies: Hx Kidney Stones Musculoskeletal History: Reports: Hx Back Problems Neurological History: Reports: Hx Transient Ischemic Attacks (TIA) Psychiatric History: Denies: Hx of Violent Episodes Against Others Infectious Disease History: No Infectious Disease History: Denies: Hx Hepatitis, Hx Human Immunodeficiency Virus (HIV), History Other Infectious Disease, Traveled Outside the [place] in Last 30 Days - Family History Known Family History: Positive: Other - Patient is adopted so FHx is unknown - Social History Alcohol Use: Occasionally Hx Substance Use: Yes Substance Use Type: Reports: Marijuana Substance Use Comment - Amount & Last Used: DAILY Hx Tobacco Use: Yes Smoking Status (MU): Heavy Every Day Tobacco Smoker Type: Cigarettes Amount Used/How Often: 6-7 cig/day Length of Time of Smoking/Using Tobacco: 12 years Have You Smoked in the Last Year: Yes Review of Systems Negative: Fever Positive: Vomiting, Nausea Positive: flank pain - R, other - Decreased urine output. Negative: dysuria, hematuria All Other Systems Reviewed And Are Negative: Yes Physical Exam - Summary Physical Exam Summary: VITAL SIGNS: Reviewed. GENERAL: Patient is a well-developed and nourished male who is lying comfortable in the stretcher. ~Patient is not in any acute respiratory distress. HEAD AND FACE: Normocephalic and atraumatic. EYES: PERRLA, EOMI x 2, No injected conjunctiva. EARS: Hearing grossly intact. Ear canals and tympanic membranes are WNL. MOUTH: Oropharynx within normal limits. NECK: Supple, trachea is midline, no adenopathy, no JVD. CHEST: Symmetric, no tenderness at palpation LUNGS: Clear to auscultation bilaterally. No wheezing or crackles. CVS: RRR, S1 and S2 present, no murmurs or gallops appreciated. ABDOMEN: RUQ tenderness. He has right flank pain. Soft. No signs of distention. Positive bowel sounds. No rebound no guarding, and no masses palpated. No abdominal bruit or pulsations. EXTREMITIES: FROM in all major joints, no edema, no cyanosis or clubbing. NEURO: Alert and oriented x 3. No acute neurological deficits. Speech is normal. SKIN: Dry and warm Triage Information Reviewed: Yes Vital Signs On Initial Exam: Initial Vitals Temp Pulse Resp BP Pulse Ox 98.2 F 64 20 153/108 99 07/21/17 11:32 07/21/17 11:32 07/21/17 11:32 07/21/17 11:32 07/21/17 11:32 Vital Signs Reviewed: Yes - [place] Coma Scale Coma Scale Total: 15 Diagnostics - Vital Signs Vital Signs Temp Pulse Resp BP Pulse Ox 07/21/17 11:32 98.2 F 64 20 153/108 99 - Laboratory Lab Results: Lab Results 07/21/17 Range/Units 12:20 WBC 11.5 H (3.5-10.8) 10^3/ul RBC 5.90 H (4.0-5.4) 10^6/ul Hgb 18.0 (14.0-18.0) g/dl Hct 53 H (42-52) % MCV 89 (80-94) fL MCH 31 (27-31) pg MCHC 34 (31-36) g/dl RDW 14 (10.5-15) % Plt Count 324 (150-450) 10^3/ul MPV 7 L (7.4-10.4) um3 Neut % (Auto) 69.7 (38-83) % Lymph % (Auto) 21.4 L (25-47) % [place] % (Auto) 7.6 (1-9) % Eos % (Auto) 0.5 (0-6) % Baso % (Auto) 0.8 (0-2) % Absolute Neuts (auto) 8.0 H (1.5-7.7) 10^3/ul Absolute Lymphs (auto) 2.5 (1.0-4.8) 10^3/ul Absolute Monos (auto) 0.9 H (0-0.8) 10^3/ul Absolute Eos (auto) 0.1 (0-0.6) 10^3/ul Absolute Basos (auto) 0.1 (0-0.2) 10^3/ul Absolute Nucleated RBC 0.01 10^3/ul Nucleated RBC % 0.1 Result Diagrams: 07/21/17 12:20 07/21/17 12:20 Lab Statement: Any lab studies that have been ordered have been reviewed, and results considered in the medical decision making process. - Radiology L-Spine XR Xray Interpretation: No Acute Changes - Negative exam. ED physician has reviewed this report and agrees. Radiology Interpretation Completed By: Radiologist - Additional Comments Diagnostic Additional Comments: Gallbladder US. Interpreted by radiologist. Impression: NO ACUTE SONOGRAPHIC PATHOLOGY OF THE VISUALIZED PORTION OF THE ABDOMEN. ED physician has reviewed this report and agrees. Abdominal Pain Fem Course/Dx - Course Assessment/Plan: The pt is a 31 y/o M BIBA c/o R flank pain that began six days ago. The pain has worsened throughout the week. The pt rates the pain 8/10. The pain is aggravated by movement and is alleviated by nothing. The patient has treated the pain with Zofran BATTERY PLATE REMOVER. Pt additionally c/o nausea, vomiting, decreased urine output. Pt denies hematuria, dysuria, and fever. He was seen by Dr. Rupesh Salamanca at [facility] five days ago. His workup during that visit was unremarkable and he symptomatically treated before being discharged home. PMHx: chronic back pain. PSHx: none. SHx: current smoker, occasional alcohol use. FHx : he is adopted and FHx is unknown. The patient is accompanied by a female family member. Test results are without significant abnormality except WBC 11.5 and glucose 105. UA is with 1+ protein and trace ketones, although no blood or infection. US of the gallbladder shows NO ACUTE SONOGRAPHIC PATHOLOGY OF THE VISUALIZED PORTION OF THE ABDOMEN. XR of the L-spine is a negative exam. The patient had a CT Abd/Pel and gallbladder ultrasound obtained four days ago for the same complaint. The CT Abd/Pel showed NO HYDRONEPHROSIS OR NEPHROLITHIASIS. NO ACUTE CT PATHOLOGY OF THE VISUALIZED ABDOMEN OR. PELVIS. The US gallbladder showed LIMITED STUDY. NO ACUTE SONOGRAPHIC PATHOLOGY OF THE VISUALIZED PORTION OF THE ABDOMEN. All these testing showed no abnormalities. Therefore, I believe the patients symptoms are secondary to musculoskeletal pain. Therefore, the patient will be discharged home with follow up by primary care. - Diagnoses Provider Diagnoses: Back pain Discharge - Discharge Plan Condition: Stable Disposition: HOME Prescriptions: Metoclopramide TAB* [Reglan TAB*] 10 mg PO Q6H PRN #10 tab PRN Reason: Pain Naproxen TAB* [Naprosyn 250 mg TAB*] 500 mg PO Q8H PRN #30 tab PRN Reason: Pain Patient Education Materials: Back Pain (ED) Referrals: Francisco Coffey MD [Primary Care Provider] - 3 Days Additional Instructions: Follow up with your primary care provider in 3 days. Return to the emergency department for any new or worsening symptoms. The documentation as recorded by the Kate cervantes Thomas accurately reflects the service I personally performed and the decisions made by , Mat Cotter MD.
== END 2017-07-21 14:49 | disposition home or self-care (01) ==
LOC: ED 11:31
DX: R10.9 Unspecified abdominal pain (principal); M54.9 Dorsalgia, unspecified; R11.2 Nausea with vomiting, unspecified; F17.210 Nicotine dependence, cigarettes, uncomplicated
CPT/HCPCS: 36415; 72100; 76705; 80053; 81003; 81015; 82550; 83690; 83880; 85025; 86140; 96374; 96375; 99283; J1885; J2405; J2765

== ENCOUNTER → 2017-11-08 11:43 | Emergency (ER) | payer SELFPAY ==
[2017-11-08 12:09] VITALS: BP 120/87
== END | disposition home or self-care (01) ==
LOC: UCEAST 11:43
DX: M79.603 Pain in arm, unspecified (principal); Z53.21 Procedure and treatment not carried out due to patient leaving prior to being seen by health care provider

== ENCOUNTER 2017-11-10 09:07 | Emergency (ER) | payer SELFPAY ==
[2017-11-10 09:20] VITALS: BP 114/78
--- NOTE | 2017-11-10 10:12 | UC ---
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 with repetitive movements with right arm - History of Current Complaint Chief Complaint: UCUpperExtremity Stated Complaint: PAINFUL LUMP IN LOWER ARM Time Seen by Provider: 11/10/17 10:11 Hx Obtained From: Patient ?: No Onset/Duration: Sudden Onset, Lasting Days - 4, Still Present Severity Initially: Moderate Severity Currently: Moderate Pain Intensity: 5 Location Of Pain: Is Discrete @ - radial aspect of right fore arm (there is no painful lump) Character: Aching Aggravating Factor(s): Movement Alleviating Factor(s): Nothing Associated Signs And Symptoms: Positive: Negative Related History: Dominant Hand Right - Allergies/Home Medications Allergies/Adverse Reactions: Allergies Allergy/AdvReac Type Severity Reaction Status Date / Time No Known Allergies Allergy Verified 11/10/17 09:20 PMH/Surg Hx/FS Hx/Imm Hx Previously Healthy: Yes - Surgical History Surgical History: Yes Surgery Procedure, Year, and Place: Dental Surgery - Family History Known Family History: Positive: Blood Disorder - Coagulation disorder, Other - Patient is adopted so FHx is unknown - Social History Occupation: Employed Full-time Lives: With Family Alcohol Use: Rare Substance Use Type: Marijuana Substance Use Comment - Amount & Last Used: DAILY Smoking Status (MU): Heavy Every Day Tobacco Smoker Type: Cigarettes Amount Used/How Often: 1.5pack/2days Length of Time of Smoking/Using Tobacco: 12 years Have You Smoked in the Last Year: Yes Household Exposure Type: Cigarettes Cessation Counseling: Counseled 3+Min - 10 Min - Immunization History Most Recent Influenza Vaccination: does not get Most Recent Tetanus Shot: UTD Review of Systems Constitutional: Negative Skin: Negative Eyes: Negative ENT: Negative Respiratory: Negative Cardiovascular: Negative Gastrointestinal: Negative Genitourinary: Negative Motor: Negative Neurovascular: Negative Musculoskeletal: Arthralgia - right fore arm Neurological: Negative Psychological: Negative Is Patient Immunocompromised?: No All Other Systems Reviewed And Are Negative: Yes Physical Exam Triage Information Reviewed: Yes Appearance: Well-Appearing, No Pain Distress, Well-Nourished Vital Signs: Initial Vital Signs Temp 99.1 F 11/10/17 09:15 Pulse 74 11/10/17 09:15 Resp 16 02/02/18 09:15 BP 114/78 11/10/17 09:15 Pulse Ox 99 11/10/17 09:15 Vital Signs Reviewed: Yes Eye Exam: Normal Eyes: Positive: Conjunctiva Clear ENT Exam: Normal ENT: Positive: Normal ENT inspection, Hearing grossly normal. Negative: Nasal drainage, Trismus, Muffled voice, Hoarse voice Dental Exam: Normal Neck exam: Normal Neck: Positive: Supple, Nontender, No Lymphadenopathy Respiratory Exam: Normal Respiratory: Positive: Chest non-tender, No respiratory distress, No accessory muscle use Cardiovascular Exam: Normal Cardiovascular: Positive: RRR, Pulses Normal, Brisk Capillary Refill Musculoskeletal Exam: Normal Musculoskeletal: Positive: Strength Intact, ROM Intact, No Edema Neurological Exam: Normal Neurological: Positive: Alert, Muscle Tone Normal Psychological Exam: Normal Skin Exam: Normal Upper Extremity Course/Dx - Course Course Of Treatment: NSAIDS, mariza wrap, splint, follow with Dr. Crawley, nicotine cesasation - Differential Dx/Diagnosis Provider Diagnoses: Nicotine Dependent, Repative Stress injury right lower arm Discharge - Discharge Plan Condition: Stable Disposition: HOME Prescriptions: Naproxen Sodium [Naproxen Sodium 500 MG TAB] 500 mg PO BID PRN #30 tab PRN Reason: pain Patient Education Materials: How to Stop Smoking (ED), Musculoskeletal Pain (ED ), Tendinitis (ED) Forms: *Work Release Referrals: Salazar Cralwey MD [Medical Doctor] - 5 Days
== END 2017-11-10 10:36 | disposition home or self-care (01) ==
LOC: UCEAST 09:07
DX: S59.911A Unspecified injury of right forearm, initial encounter (principal); X50.3XXA Overexertion from repetitive movements, initial encounter; Y92.9 Unspecified place or not applicable; F17.210 Nicotine dependence, cigarettes, uncomplicated
CPT/HCPCS: 99213; G0463

== ENCOUNTER 2018-06-04 13:13 | Emergency (ER) | payer SELFPAY ==
[2018-06-04 13:38] VITALS: BP 127/88
--- NOTE | 2018-06-04 14:05 | RAD ---
INDICATION: Right foot pain COMPARISON: None TECHNIQUE: AP, lateral, and oblique views were obtained. FINDINGS: The bony structures, joint spaces, and soft tissues are normal for age. IMPRESSION: NEGATIVE EXAMINATION.
--- NOTE | 2018-06-04 14:54 | ED ---
Lower Extremity - HPI Summary HPI Summary: Patient is a 32-year-old male presenting to the ED with a right foot injury which he sustained approximately 1 month ago. He states he dropped the edge of a log onto the dorsal side of his foot has been having pain intermittently since that time. He was told by his pus to come to [facility]. He denies any numbness or tingling, color temperature changes. He remains ambulatory. He denies any other symptoms at this time. Denies any knee pain. - History of Current Complaint Chief Complaint: UCLowerExtremity Stated Complaint: R FOOT/ANKLE INJURY Time Seen by Provider: 06/04/18 13:40 Hx Obtained From: Patient Mechanism Of Injury: Blunt Trauma Onset of Pain: Minutes Onset/Duration: Minutes Severity Initially: Mild Severity Currently: Mild Pain Intensity: 6 Pain Scale Used: 0-10 Numeric Location: Is Discrete @ - right foot pain Associated Signs And Symptoms: Negative: Swelling, Redness, Bruising Aggravating Factor(s): Standing, Ambulation Alleviating Factor(s): Rest Able to Bear Weight: Yes - Risk Factors Gout Risk Factors: Negative DVT Risk Factors: Negative Septic Arthritis Risk Factor: Negative - Allergies/Home Medications Allergies/Adverse Reactions: Allergies Allergy/AdvReac Type Severity Reaction Status Date / Time No Known Allergies Allergy Verified 06/04/18 13:31 Home Medications: Home Medications NK [No Home Medications Reported] 06/04/18 [History Confirmed 06/04/18] PMH/Surg Hx/FS Hx/Imm Hx Previously Healthy: Yes Endocrine/Hematology History: Denies: Hx Diabetes, Hx Thyroid Disease Cardiovascular History: Denies: Hx Congestive Heart Failure, Hx Hypertension Respiratory History: Denies: Hx Asthma, Hx Chronic Obstructive Pulmonary Disease (COPD) GI History: Denies: Hx Ulcer History: Denies: Hx Kidney Stones Musculoskeletal History: Reports: Hx Back Problems Neurological History: Reports: Hx Transient Ischemic Attacks (TIA) Psychiatric History: Denies: Hx of Violent Episodes Against Others - Surgical History Surgery Procedure, Year, and Place: Dental Surgery - Immunization History Hx Pertussis Vaccination: No Immunizations Up to Date: Unable to Obtain/Confirm Infectious Disease History: No Infectious Disease History: Denies: Hx Hepatitis, Hx Human Immunodeficiency Virus (HIV), History Other Infectious Disease, Traveled Outside the [place] in Last 30 Days - Family History Known Family History: Positive: Blood Disorder - Coagulation disorder, Other - Patient is adopted so FHx is unknown - Social History Occupation: Employed Full-time Lives: With Family Alcohol Use: Rare Hx Substance Use: Yes Substance Use Type: Reports: Marijuana Substance Use Comment - Amount & Last Used: DAILY Hx Tobacco Use: Yes Smoking Status (MU): Heavy Every Day Tobacco Smoker Type: Cigarettes Amount Used/How Often: 1.5pack/ day Length of Time of Smoking/Using Tobacco: 12 years Have You Smoked in the Last Year: Yes Review of Systems Constitutional: Negative Negative: Fever, Chills, Fatigue, Skin Diaphoresis Negative: Palpitations, Chest Pain Negative: Shortness Of Breath, Cough Genitourinary: Negative Positive: no symptoms reported, see HPI Positive: Arthralgia - right foot pain Skin: Negative Psychological: Normal All Other Systems Reviewed And Are Negative: Yes Physical Exam Triage Information Reviewed: Yes Vital Signs On Initial Exam: Initial Vitals Temp Pulse Resp BP Pulse Ox 98.1 F 79 16 127/88 99 06/04/18 13:32 06/04/18 13:32 06/04/18 13:32 06/04/18 13:32 06/04/18 13:32 Vital Signs Reviewed: Yes Appearance: Positive: Well-Appearing, Well-Nourished Skin: Positive: Skin Color Reflects Adequate Perfusion Neck: Positive: Supple, No Lymphadenopathy Respiratory/Lung Sounds: Positive: Clear to Auscultation, Breath Sounds Present Cardiovascular: Positive: RRR, Pulses are Symmetrical in both Upper and Lower Extremities Musculoskeletal: Positive: Strength/ROM Intact Neurological: Positive: Speech Normal Psychiatric: Positive: Normal Diagnostics - Vital Signs Vital Signs Temp Pulse Resp BP Pulse Ox 06/04/18 13:32 98.1 F 79 16 127/88 99 - Laboratory Lab Statement: Any lab studies that have been ordered have been reviewed, and results considered in the medical decision making process. - Radiology No standard instances Xray Interpretation: No Acute Changes - no acute findings Radiology Interpretation Completed By: Radiologist Lower Extremity Course/Dx - Course Course Of Treatment: Patient is evaluated for right foot pain. X-ray of the right foot obtained which shows no acute findings. He is encouraged ice and ibuprofen and he is okay to return to work at this time. - Diagnoses Provider Diagnoses: Contusion, foot Discharge - Sign-Out/Discharge Documenting (check all that apply): Patient Departure All imaging exams completed and their final reports reviewed: Yes - Discharge Plan Condition: Stable Disposition: HOME Patient Education Materials: Crush Injury (ED) Forms: *Gen. Provider Communication Referrals: No Primary Care Phys,NOPCP [Primary Care Provider] - Additional Instructions: No evidence of fracture is seen ibuprofen 600mg three times daily as needed for discomfort - Billing Disposition and Condition Condition: STABLE Disposition: Home
== END 2018-06-04 14:15 | disposition home or self-care (01) ==
LOC: UCEAST 13:13
DX: S90.31XA Contusion of right foot, initial encounter (principal); F17.210 Nicotine dependence, cigarettes, uncomplicated; W20.8XXA Other cause of strike by thrown, projected or falling object, initial encounter; Y92.9 Unspecified place or not applicable
CPT/HCPCS: 99211; G0463

== ENCOUNTER 2018-06-15 11:51 | Emergency (ER) | payer SELFPAY ==
[2018-06-15 12:23] VITALS: BP 113/72
--- NOTE | 2018-06-15 14:01 | UC ---
Lower Extremity/Ankle HPI - HPI Summary HPI Summary: The patient is a 32-year-old male who presents here for the evaluation of a right foot injury that occurred greater than 6 weeks ago. Work-related injury. 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 He has walked with a pronounced limp since then. He has had significant pain with weightbearing daily since the injury. He was seen here about a week and a half ago and had an x-ray of his foot which was read as negative. - History of Current Complaint Chief Complaint: UCLowerExtremity Stated Complaint: WC FOLLOW UP R FOOT Time Seen by Provider: 06/15/18 13:44 Hx Obtained From: Patient Onset/Duration: Sudden Onset, Lasting Weeks, Still Present Severity Initially: Moderate Severity Currently: Moderate Pain Intensity: 7 Pain Scale Used: 0-10 Numeric Aggravating Factor(s): Standing, Ambulation Alleviating Factor(s): Rest, Elevation Able to Bear Weight: Yes Related History: Occupational Injury Feet (Multiple View): 1 - tender mid foot 2 - brunt of trauma here 3 - also tender metarsal heads - Allergies/Home Medications Allergies/Adverse Reactions: Allergies Allergy/AdvReac Type Severity Reaction Status Date / Time No Known Allergies Allergy Verified 06/15/18 12:23 PMH/Surg Hx/FS Hx/Imm Hx Previously Healthy: Yes - Surgical History Surgical History: None Surgery Procedure, Year, and Place: Dental Surgery - Family History Known Family History: Positive: Unknown - He is adopted, little known about his FHx, Blood Disorder - Coagulation disorder, Other - Patient is adopted so FHx is unknown - Social History Alcohol Use: Rare Substance Use Type: Marijuana Substance Use Comment - Amount & Last Used: DAILY Smoking Status (MU): Heavy Every Day Tobacco Smoker Type: Cigarettes Amount Used/How Often: 1.5pack/ day Length of Time of Smoking/Using Tobacco: 12 years Have You Smoked in the Last Year: Yes Household Exposure Type: Cigarettes - Immunization History Most Recent Influenza Vaccination: does not get Most Recent Tetanus Shot: UTD Review of Systems Constitutional: Negative Skin: Negative Eyes: Negative ENT: Negative Respiratory: Negative Cardiovascular: Negative Gastrointestinal: Negative Genitourinary: Negative Motor: Negative Neurovascular: Negative Musculoskeletal: Arthralgia Neurological: Negative Psychological: Negative Is Patient Immunocompromised?: No All Other Systems Reviewed And Are Negative: Yes Physical Exam Triage Information Reviewed: Yes Appearance: Well-Appearing, No Pain Distress, Well-Nourished Vital Signs: Initial Vital Signs Temp 97.8 F 06/15/18 12:18 Pulse 53 06/15/18 12:18 Resp 19 06/15/18 12:18 BP 113/72 06/15/18 12:18 Pulse Ox 100 06/15/18 12:18 Vital Signs Reviewed: Yes Eyes: Positive: Conjunctiva Clear ENT: Positive: Hearing grossly normal. Negative: Nasal congestion, Nasal drainage, Trismus, Muffled voice, Hoarse voice Neck: Positive: Supple, Nontender Respiratory: Positive: Lungs clear, Normal breath sounds, No respiratory distress, No accessory muscle use Cardiovascular: Positive: RRR, No Murmur Musculoskeletal: Positive: No Edema, Other: - see image Neurological: Positive: Alert Psychological Exam: Normal Skin Exam: Normal Diagnostics - Radiology No standard instances Xray Interpretation: Positive (See Comments) - anterior lateral process of the calcaneus healing chip fx Lower Extremity Course/Dx - Differential Dx/Diagnosis Provider Diagnoses: subacute chip fx calcaneus ant-lateral process Discharge - Sign-Out/Discharge Documenting (check all that apply): Patient Departure All imaging exams completed and their final reports reviewed: Yes - Discharge Plan Condition: Stable Disposition: HOME Patient Education Materials: Calcaneal Fracture (ED) Forms: *Work Release Referrals: Wilfred Vences MD [Medical Doctor] - As Soon As Possible Additional Instructions: chip fracture of calcaneus CAM boot advil or aleve ice twice daily - Billing Disposition and Condition Condition: STABLE Disposition: Home
--- NOTE | 2018-06-15 14:39 | RAD ---
Indication: Persistent RIGHT foot pain following injury greater than 6 weeks ago. Comparison: June 04, 2018 radiographs. Technique: Noncontrast CT RIGHT ankle and foot. Multiplanar reformation. Report: Normal articular alignment. Small grossly nondisplaced fracture at the superior lateral margin of the anterior process of the calcaneus corresponding with the origin of the bifurcate ligament. Suggestion of mild osseous remodeling favoring early fracture healing response. Overlying soft tissue swelling. Negative for additional fracture. Negative for significant arthropathic change. IMPRESSION: #. Small grossly nondisplaced fracture at the superior lateral margin of the anterior process of the calcaneus corresponding with the origin of the bifurcate ligament. Suggestion of mild osseous remodeling favoring early fracture healing response. Overlying soft tissue swelling.
== END 2018-06-15 15:05 | disposition home or self-care (01) ==
LOC: UCEAST 11:51
DX: S92.021A Displaced fracture of anterior process of right calcaneus, initial encounter for closed fracture (principal); W20.8XXA Other cause of strike by thrown, projected or falling object, initial encounter; Y92.9 Unspecified place or not applicable
CPT/HCPCS: 99212; G0463

== ENCOUNTER 2018-08-09 09:31 | Day surgery (SDC) | payer OTHER ==
[~2018-08-09 09:31] MED LIST: Buffered Lidocaine 0.9% SYRIN* 5 ML/SYR SYRINGE INTRADERM ONE; Dexamethasone TAB* 4 MG PO ONE; Famotidine IV* 10 MG/ML 2 ML (20 mg) IV ONE; Morphine VIAL* 10 MG/ML 1 ML VIAL ONE; Ondansetron TAB* 4 MG PO ONE
[2018-08-09] MEDS ORDERED: ceFAZolin 2 GM PREMIX in ORs 2 GM/50 ML BAG IVPB ONE (09:38)
[2018-08-09] MEDS ORDERED: Morphine VIAL* 10 MG/ML 1 ML VIAL ONE (09:38)
[2018-08-09] MEDS ORDERED: Midazolam* 1 MG/ML 5 ML VIAL (5 MG) ONE (10:45)
[2018-08-09] MEDS ORDERED: fentaNYL* 50 MCG/ML 2 ML VIAL (100 MCG VIAL) ONE (10:45)
[2018-08-09] MEDS ORDERED: Propofol* 10 MG/ML 20 ML BTL IV PUSH ONE (10:46)
[2018-08-09] MEDS ORDERED: Bupivacaine 0.5% SDV PF* 30ML VIAL ONE (10:49)
[2018-08-09] MEDS ORDERED: oxyCODONE/Acetamin 5/325 MG* TAB PO PRN (11:24)
[2018-08-09] MEDS ORDERED: Ondansetron INJ* 2 MG/ML VIAL IV PRN (11:24)
[2018-08-09] MEDS ORDERED: Ketorolac INJ* 30 MG/ML 1 ML VIAL ONE (11:24)
[2018-08-09] MEDS ORDERED: Ketorolac INJ* 30 MG/ML 1 ML VIAL IV PRN (11:24)
[2018-08-09] MEDS ORDERED: Naloxone* 0.4 MG/ML 1 ML VIAL IV PRN (11:24)
[2018-08-09 12:17] VITALS: BP 124/88
--- NOTE | 2018-08-09 13:18 | OP ---
Operative Report - Blank - Operative Report Date of Operation: 08/09/18 Note: PATIENT: Anthony Oconnor DATE OF : 1985 DATE OF SURGERY: 08/09/2018 SURGEON: Silvano Lancaster MD WATER CONTROL SUPERVISOR: WERNER Granger, whos assistance was necessary for positioning, retraction, help with instrumentation, and closure. ANESTHESIOLOGIST: Dr. 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 ANESTHESIA: LMA IMPLANTS: none TOURNIQUET TIME: Less than one hour with a well-padded thigh tourniquet at 250mmHg SPECIMENS: none ESTIMATED BLOOD LOSS: minimal COMPLICATIONS: none STATUS: Stable from the operating room to the recovery room and then home INDICATIONS FOR PROCEDURE: Anthony has had persistent pain at the site of his anterior process of the calcaneus nonunion. Both operative and non-operative treatment alternatives were reviewed. Further, the nature and risks of surgery were reviewed in careful detail. Our discussions regarding the risks of surgery included, but were not limited to, infection, wound problems, nerve injury, neuroma, RSD, persistent pain/symptoms, blood clot, need for further surgery, failure of the surgery, and even the remote chance of catastrophic complication, including loss of limb. DESCRIPTION OF PROCEDURE: The patient was seen in the preoperative holding unit and informed written consent was obtained. The appropriate extremity was marked. The patient was then brought to the operating room and carefully positioned on the operating room table. Anesthesia was induced. All bony prominences were padded with great care. A well-padded thigh tourniquet was placed. A chlorhexidine based pre- scrub was performed followed by a chloraprep prep and drape in standard sterile fashion. A surgical safety pause was then conducted in which we confirmed the appropriate patient, extremity, planned procedure, availability of equipment, indication and administration of prophylactic antibiotics, and DVT prophylaxis in the form of a compression boot on the non-surgical extremity. I began with an Esmarch exsanguination of the limb and inflated the tourniquet. I made a longitudinal incision overlying the lateral hindfoot, centered at the anterior process of the calcaneus. I used careful blunt dissection down to the level of the extensor digitorum brevis. The fibers of the extensor digitorum brevis were then split longitudinally to expose the underlying anterior process of the calcaneus. I used my 15 blade scalpel to define the anterior process nonunion fracture plane. Soft tissue attachments were then released, allowing me to excise the nonunited anterior process, thus performing a saucerization. I used a rongeur to smooth out the edges of the remaining bone. The wound was copiously irrigated and meticulously closed in layers utilizing 3- 0 Monocryl and 3-0 Nylon for the skin. A sterile dressing was then applied. The patient was then awakened from anesthesia and transferred to the recovery room in stable condition. There were no complications. All needle and sponge counts were correct at the end of the case. ATTESTATION: I attest I was present and scrubbed and performed the critical portions of the procedure myself. POSTOPERATIVE PLAN: The plan is for nonweightbearing and follow up in 2 weeks for likely suture removal.
== END 2018-08-09 12:44 | disposition home or self-care (01) ==
LOC: OR 09:31
PROVIDERS: ATTEND Orthopaedic Surgery
DX: S92.024K Nondisplaced fracture of anterior process of right calcaneus, subsequent encounter for fracture with nonunion (principal); Z72.0 Tobacco use; X58.XXXD Exposure to other specified factors, subsequent encounter; Y92.9 Unspecified place or not applicable
CPT/HCPCS: J0690; J1885; J2250; J2270; J2704; J3010

== ENCOUNTER 2019-10-26 14:40 | Emergency (ER) | payer OTHER ==
[2019-10-26 15:00] VITALS: BP 158/95
--- NOTE | 2019-10-26 15:05 | UC ---
Bite Injury/Animal HPI - HPI Summary HPI Summary: patient was bitten by his pet dog while pulling treat out of her mouth today. bite wounds on both hands Tdap 2 years ago - History of Current Complaint Chief Complaint: UCBiteInjury Stated Complaint: DOG BITE-HAND Time Seen by Provider: 10/26/19 14:50 Severity Currently: None Severity Initially: Moderate Pain Intensity: 0 Onset/Duration: Sudden Onset Type of Bite: Pet - dog Has Animal Been Immunized?: Yes Character: Puncture - abrasions Aggravating Factor(s): Nothing Alleviating Factor(s): Nothing Associated Signs And Symptoms: Positive: Negative Hx of Bite: Provoked by: - taking food out of mouth Animal Available for Observation: Yes Animal Control Notified: Yes - Allergies/Home Medications Allergies/Adverse Reactions: Allergies Allergy/AdvReac Type Severity Reaction Status Date / Time No Known Allergies Allergy Verified 10/26/19 15:01 PMH/Surg Hx/FS Hx/Imm Hx Previously Healthy: Yes - Surgical History Surgical History: Yes Surgery Procedure, Year, and Place: Dental Surgery-teeth removed. MOLE REMOVED FROM BACK AGE 15. Rt FOOT - FRACTURE HEEL REPAIR - NO HARDWARE - Family History Known Family History: Positive: Unknown - He is adopted, little known about his FHx, Blood Disorder - Coagulation disorder, Other - Patient is adopted so FHx is unknown - Social History Occupation: Employed Full-time Lives: With Family Alcohol Use: Rare Substance Use Type: Marijuana Substance Use Comment - Amount & Last Used: medical Smoking Status (MU): Light Every Day Tobacco Smoker Type: Cigarettes Amount Used/How Often: 0.5 PPD X smoked for 15-20 years Length of Time of Smoking/Using Tobacco: 12 years Have You Smoked in the Last Year: Yes Household Exposure Type: Cigarettes Cessation Counseling: Patient Advised to Stop - Immunization History Most Recent Influenza Vaccination: does not get Most Recent Tetanus Shot: UTD Review of Systems All Other Systems Reviewed And Are Negative: Yes Constitutional: Positive: Negative Skin: Positive: Other - dog bite wounds R fingers Respiratory: Positive: Negative Cardiovascular: Positive: Negative Musculoskeletal: Positive: Negative Neurological: Positive: Negative Psychological: Positive: Negative Is Patient Immunocompromised?: No Physical Exam Triage Information Reviewed: Yes Appearance: Well-Appearing, No Pain Distress, Well-Nourished Vital Signs: Initial Vital Signs Temp 98.2 F 10/26/19 14:55 Pulse 96 10/26/19 14:55 Resp 20 10/26/19 14:55 BP 158/95 10/26/19 14:55 Pulse Ox 99 10/26/19 14:55 Vital Signs Reviewed: Yes Respiratory Exam: Normal Respiratory: Positive: Lungs clear Cardiovascular Exam: Normal Cardiovascular: Positive: RRR Musculoskeletal Exam: Normal Musculoskeletal: Positive: Strength Intact, ROM Intact Neurological Exam: Normal Neurological: Positive: Other: - sensation intact R hand/fingers Psychological Exam: Normal Skin Exam: Other - dog bite R 1st, 3rd, 4th fingers, superficial PW and abrasions, demonstrates full ROM and strength all fingers Bite Injury Course/Dx - Differential Dx/Diagnosis Differential Diagnosis/HQI/PQRI: Crush Injury, Laceration, Puncture, Rabies Exposure Provider Diagnosis: Dog bite Discharge ED - Sign-Out/Discharge Documenting (check all that apply): Patient Departure All imaging exams completed and their final reports reviewed: No Studies - Discharge Plan Condition: Good Disposition: HOME Prescriptions: Amoxicillin/Clavulanate TAB* [Augmentin TAB 875*] 875 mg PO BID #20 tab Patient Education Materials: Animal Bite (ED) Referrals: Salazar Cheng MD [Primary Care Provider] - Additional Instructions: keep wounds clean and dry elevate hand and apply cold packs for next 2 days start antibiotic and take as directed use ibuprofen or Tylenol as directed for pain return if you experience swelling, redness or drainage from wounds - Billing Disposition and Condition Condition: GOOD Disposition: Home
== END 2019-10-26 15:30 | disposition home or self-care (01) ==
LOC: UCEAST 14:40
DX: S61.051A Open bite of right thumb without damage to nail, initial encounter (principal); S61.252A Open bite of right middle finger without damage to nail, initial encounter; S61.254A Open bite of right ring finger without damage to nail, initial encounter; F17.210 Nicotine dependence, cigarettes, uncomplicated; W54.0XXA Bitten by dog, initial encounter; Y92.9 Unspecified place or not applicable
CPT/HCPCS: 99213; G0463

== ENCOUNTER 2019-10-26 21:26 | Emergency (ER) | payer OTHER ==
--- NOTE | 2019-10-26 21:41 | ED ---
Bite Injury/Animal - HPI Summary HPI Summary: 33-year-old male without significant past history presents to the emergency department today with multiple dog bites after he broke up a fight between 2 of his dogs. Patient has noted bite wounds to the right knee, right forearm, left wrist. Patient states the dogs were fighting her both his and her up-to-date with her rabies vaccinations. Patient states he is up-to-date with his tetanus vaccination. Patient is in considerable pain and there is noted deformity to the right forearm. There are multiple puncture wounds throughout the areas where the patient endorses being bitten. Patient otherwise feels well and denies fever, chest pain, abdominal pain, pain with urination, rash. Pt seen earlier this day for a different dog bite and given augmentin. - History of Current Complaint Chief Complaint: EDAnimalBite Stated Complaint: DOG BITE PER EMS Time Seen by Provider: 10/26/19 21:40 Hx Obtained From: Patient Onset of Injury: Happened hours ago Type of Bite: Animal Hx of Bite: Provoked by: - dogs fighting Has Animal Been Immunized?: Yes Severity Initially: Severe Severity Currently: Severe Pain Intensity: 9 Pain Scale Used: 0-10 Numeric Character: Puncture Aggravating Factor(s): Exertion Alleviating Factor(s): Rest Animal Available for Observation: Yes Animal Control Notified: Yes - Allergies/Home Medications Allergies/Adverse Reactions: Allergies Allergy/AdvReac Type Severity Reaction Status Date / Time No Known Allergies Allergy Verified 10/26/19 15:01 PMH/Surg Hx/FS Hx/Imm Hx Endocrine/Hematology History: Denies: Hx Diabetes, Hx Thyroid Disease Cardiovascular History: Reports: Other Cardiovascular Problems/Disorders - OCCASIONAL-"HEART RATE RAPID AT TIMES"-LASTING 10 SECONDS-REPORTS NOT NEW Denies: Hx Congestive Heart Failure, Hx Hypertension, Hx Pacemaker/ICD Respiratory History: Reports: Hx Asthma - EXERCISE INDUCED ASTHMA AT AGE 14- STATES NO PROBLEMS NOW Denies: Hx Chronic Obstructive Pulmonary Disease (COPD) GI History: Denies: Hx Ulcer History: Denies: Hx Kidney Stones, Hx Renal Disease Musculoskeletal History: Reports: Hx Back Problems Sensory History: Reports: Hx Contacts or Glasses - glasses Denies: Hx Hearing Aid Opthamlomology History: Reports: Hx Contacts or Glasses - glasses Neurological History: Reports: Hx Headaches - HX OF AND ON OCCASION, Hx Migraine - HX OF- AND ON OCCASION, Hx Transient Ischemic Attacks (TIA) Psychiatric History: Reports: Hx Anxiety - REPORTS STRESS RELATED Denies: Hx Panic Disorder, Hx of Violent Episodes Against Others - Cancer History Hx Chemotherapy: No - Surgical History Surgery Procedure, Year, and Place: Dental Surgery-teeth removed. MOLE REMOVED FROM BACK AGE 15. Rt FOOT - FRACTURE HEEL REPAIR - NO HARDWARE Hx Anesthesia Reactions: No Infectious Disease History: No Infectious Disease History: Denies: Hx Hepatitis, Hx Human Immunodeficiency Virus (HIV), History Other Infectious Disease, Traveled Outside the [place] in Last 30 Days - Family History Known Family History: Positive: Unknown - He is adopted, little known about his FHx, Blood Disorder - Coagulation disorder, Other - Patient is adopted so FHx is unknown - Social History Alcohol Use: Rare Hx Substance Use: Yes Substance Use Type: Reports: Marijuana Substance Use Comment - Amount & Last Used: medical Hx Tobacco Use: Yes Smoking Status (MU): Light Every Day Tobacco Smoker Type: Cigarettes Amount Used/How Often: 0.5 PPD X smoked for 15-20 years Length of Time of Smoking/Using Tobacco: 12 years Have You Smoked in the Last Year: Yes Review of Systems Constitutional: Negative Eyes: Negative ENT: Negative Cardiovascular: Negative Respiratory: Negative Gastrointestinal: Negative Genitourinary: Negative Positive: Arthralgia, Myalgia, Decreased ROM, Edema Positive: Bruising Neurological: Negative Psychological: Normal All Other Systems Reviewed And Are Negative: Yes Physical Exam - Summary Physical Exam Summary: Multiple puncture wounds noted to right knee, right forearm and left wrist. There is edema and ecchymosis noted to the right forearm. Pt has full ROM throughout and is neurovascularly intact. Triage Information Reviewed: Yes Vital Signs On Initial Exam: Initial Vitals Temp Pulse Resp BP Pulse Ox 98.6 F 91 16 118/81 97 10/26/19 21:29 10/26/19 21:29 10/26/19 21:29 10/26/19 21:29 10/26/19 21:29 Vital Signs Reviewed: Yes Appearance: Positive: Well-Appearing, No Pain Distress, Well-Nourished Skin: Positive: Warm, Skin Color Reflects Adequate Perfusion Eyes: Positive: EOMI, BURKE ENT: Positive: Hearing grossly normal Respiratory/Lung Sounds: Positive: Clear to Auscultation, Breath Sounds Present Cardiovascular: Positive: RRR, S1, S2 Abdomen Description: Positive: Nontender, Soft Bowel Sounds: Positive: Present Musculoskeletal: Positive: Strength/ROM Intact Neurological: Positive: Sensory/Motor Intact, Alert, Oriented to Person Place, Time, Normal Gait, Speech Normal Psychiatric: Positive: Normal, Affect/Mood Appropriate AVPU Assessment: Alert Procedures - Sedation Patient Received Moderate/Deep Sedation with Procedure: No Diagnostics - Vital Signs Vital Signs Temp Pulse Resp BP Pulse Ox 10/26/19 21:29 98.6 F 91 16 118/81 97 - Laboratory Lab Statement: Any lab studies that have been ordered have been reviewed, and results considered in the medical decision making process. Bite Injury Course/Dx - Course Course Of Treatment: Pt evaluated for animal bite. Vitals noted. PT was seen at urgent care for a different dog bite earlier in the day and given augmentin. xray ofthe right forearm negative for fracture or foreign body. Pt is UTD with tetanus immunization. PT wounds cleaned and dressed. Sutures were not applied due to infection risk, and left for secondary closure. Animal control called, and patient discharged with augmentin and outpatient follow up. - Diagnoses Differential Diagnosis/HQI/PQRI: Positive: Compartment Syndrome, Crush Injury, Fracture, Laceration, Puncture, Rabies Exposure, Superficial Infection Provider Diagnosis: Dog bite Discharge ED - Sign-Out/Discharge Documenting (check all that apply): Patient Departure - Discharge Plan Condition: Stable Disposition: HOME Patient Education Materials: Animal Bite (ED) Referrals: Salazar Cheng MD [Primary Care Provider] - 3 Days Additional Instructions: Please take ibuprofen 600 mg every 6 hours as needed for pain. Please take Augmentin 875 twice daily for 10 days. Please ensure your wound stays clean and dry. Please follow up with your primary care provider in 3 days for wound check. Please return to emergency department immediately if you develop any new or worsening symptoms. - Billing Disposition and Condition Condition: STABLE Disposition: Home
[2019-10-26] MEDS ORDERED: oxyCODONE/Acetamin 5/325 MG* TAB PO ONE (21:55)
[2019-10-26] MEDS ORDERED: Amoxicillin/Clavulanate TAB* 875 MG PO ONE (23:03)
[2019-10-26] MEDS ORDERED: Bacitracin OINTMENT* 0.5% 0.5 oz TUBE TOPICAL ONE (23:12)
[2019-10-26 23:47] VITALS: BP 129/98
== END 2019-10-26 23:40 | disposition home or self-care (01) ==
LOC: ED 21:26
DX: S51.851A Open bite of right forearm, initial encounter (principal); S81.051A Open bite, right knee, initial encounter; S61.552A Open bite of left wrist, initial encounter; W54.0XXA Bitten by dog, initial encounter; Y92.9 Unspecified place or not applicable; R51 Headache; F41.9 Anxiety disorder, unspecified; F17.210 Nicotine dependence, cigarettes, uncomplicated
CPT/HCPCS: 99282; A9270-GY